=== PATIENT | female | born 1995 | race Two or more races ===

== ENCOUNTER 2018-02-19 10:55 | Inpatient (IN) | payer BC, OTHER ==
[2018-02-19] MEDS: CEFAZOLIN 1 GM/50 ML (PMX) 50 ML IVPB (00:45)
[~2018-02-19 10:55] MED LIST: OXYTOCIN 30 UNITS/LR 500 ML BAG IV
[2018-02-19] MEDS: LACTATED RINGER'S 1,000 ML IV ×2 (11:40→15:43)
[2018-02-19] MEDS ORDERED: MISOPROSTOL 200 MCG TAB PR ×2 (12:00→22:00)
[2018-02-19] MEDS ORDERED: OXYTOCIN 30 UNITS/LR 500 ML IV ×2 (12:00→22:00)
[2018-02-19] MEDS ORDERED: CARBOPROST 250 MCG INJ IM ×2 (12:00→22:00)
[2018-02-19] MEDS ORDERED: METHYLERGONOVINE 0.2 MG INJ IM ×2 (12:00→22:00)
[2018-02-19 12:26] LABS: ADD MAN DIFF? NO
[2018-02-19 12:29] LABS: ABNORMAL IP MESSAGE 1; BASOPHILS % 0.5 % (0.0-2.0); EOSINOPHILS % 0.5 % (0.0-7.0); HEMATOCRIT 25.3 % (37.0-47.0); HEMOGLOBIN 7.6 g/dl (12.0-16.0); LYMPHOCYTES # 1.2 10^3/ul (0.8-2.9); LYMPHOCYTES % 17.7 % (15.0-51.0); MEAN CORPUSCULAR VOLUME 79.8 fl (82.0-101.0); MEAN PLATELET VOLUME 13.9 fl (7.4-10.4); MONOCYTE # 0.5 10^3/ul (0.3-0.9); MONOCYTES % 7.2 % (0.0-11.0); NEUTROPHIL # 4.8 10^3/ul (1.6-7.5); NEUTROPHILS % 73.6 % (39.0-77.0); NUCLEATED RED BLOOD CELLS% 0.3 /100WBC (0.0-0.0); PLATELET COUNT 198 10^3/UL (140-415); RED BLOOD COUNT 3.17 10^6/ul (4.20-5.40); RED CELL DISTRIBUTION WIDTH 17.4 % (11.5-14.5)
[2018-02-19 12:29] LABS: WHITE BLOOD COUNT 6.5 10^3/ul (4.8-10.8)
[2018-02-19 12:30] LABS: POSITIVE DIFF @See below
[2018-02-19 12:46] LABS: INR 0.89; PROTIME 12.1 Sec (11.9-14.9); PT RATIO 0.9
[2018-02-19 12:47] LABS: PARTIAL THROMBOPLASTIN TIME 26.9 Sec (25.0-35.0)
[2018-02-19 14:17] LABS: HEPATITIS B SURFACE ANTIGEN NEGATIVE (NEGATIVE)
[2018-02-19 15:13] LABS: RAPID PLASMA REAGIN NONREACTIVE (NR)
[2018-02-19] MEDS ORDERED: OXYTOCIN 10 UNIT INJ (16:28)
[2018-02-19] MEDS ORDERED: PHENYLephrine (100 MCG/ML) 5ML SYG (16:28)
[2018-02-19] MEDS ORDERED: morphine SULFATE/PF (10 MG/10 ML) INJ (16:28)
[2018-02-19] MEDS ORDERED: BUPIVACAINE 0.75%/DEXT (SPINAL) 2 ML INJ (16:29)
[2018-02-19] MEDS: CEFAZOLIN 2 GM/50 ML (PMX) 50 ML IV (16:59)
[2018-02-19] MEDS ORDERED: METOCLOPRAMIDE 10 MG INJ (17:01)
[2018-02-19] MEDS ORDERED: DEXAMETHASONE 4 MG/ML 1 ML INJ (17:01)
[2018-02-19] MEDS ORDERED: ONDANSETRON 4 MG INJ (17:01)
[2018-02-19] MEDS ORDERED: KETOROLAC 30 MG INJ (17:01)
[2018-02-19] MEDS ORDERED: EPHEDrine SULFATE 50 MG/5 ML SYG (17:03)
[2018-02-19] MEDS: OXYTOCIN 30 UNITS/LR 500 ML IV ×2 (18:13→22:15)
[2018-02-19] MEDS ORDERED: NALOXONE (0.4 MG/ML) INJ IV (18:30)
[2018-02-19] MEDS ORDERED: HYDROCODONE/APAP (5/325) TAB PO (18:30)
[2018-02-19] MEDS ORDERED: ONDANSETRON 4 MG INJ IV (18:30)
[2018-02-19] MEDS ORDERED: HYDROmorphONE 0.5 MG/0.5 ML SYG IV ×2 (18:30)
[2018-02-19] MEDS ORDERED: DIPHENHYDRAMINE 50 MG INJ IV (18:30)
[2018-02-19] MEDS ORDERED: morphine 2 MG INJ IV ×2 (18:30)
[2018-02-19] MEDS ORDERED: ACETAMINOPHEN 500 MG TAB PO (18:30)
[2018-02-19] MEDS ORDERED: NALBUPHINE HCL (10 MG/1 ML) INJ IV (18:30)
[2018-02-19] MEDS: ONDANSETRON 4 MG INJ IV (19:56)
[2018-02-20] MEDS: OXYTOCIN 30 UNITS/LR 500 ML IV (02:59)
[2018-02-20] MEDS: LACTATED RINGER'S 1,000 ML IV ×3 (06:35→18:00)
[2018-02-20 09:02] LABS: ADD MAN DIFF? NO
[2018-02-20 09:11] LABS: WHITE BLOOD COUNT 10.6 10^3/ul (4.8-10.8)
[2018-02-20 09:11] LABS: ABNORMAL IP MESSAGE 1; BASOPHILS % 0.2 % (0.0-2.0); HEMATOCRIT 19.9 % (37.0-47.0); LYMPHOCYTES # 1.1 10^3/ul (0.8-2.9); MEAN CORPUSCULAR HGB CONC 29.6 g/dl (32.0-37.0); MEAN CORPUSCULAR VOLUME 80.9 fl (82.0-101.0); MEAN PLATELET VOLUME 13.8 fl (7.4-10.4); MONOCYTE # 0.7 10^3/ul (0.3-0.9); MONOCYTES % 6.8 % (0.0-11.0); NEUTROPHIL # 8.8 10^3/ul (1.6-7.5); NEUTROPHILS % 82.5 % (39.0-77.0); PLATELET COUNT 147 10^3/UL (140-415); RED BLOOD COUNT 2.46 10^6/ul (4.20-5.40); RED CELL DISTRIBUTION WIDTH 17.5 % (11.5-14.5)
[2018-02-20 09:19] LABS: POSITIVE DIFF @See below
[2018-02-20 09:20] LABS: HEMOGLOBIN 5.9 g/dl (12.0-16.0)
[2018-02-20] MEDS: SOD CHLORIDE 0.9% 250 ML IV* (09:27)
[2018-02-20] MEDS: SENNA/DOCUSATE NA (8.6MG/50MG) TAB PO ×2 (10:07→21:32)
[2018-02-20] MEDS: KETOROLAC 30 MG INJ IV (12:24)
[2018-02-20 12:56] LABS: IMMEDIATE SPIN CROSSMATCH 1 4
[2018-02-20] MEDS: IBUPROFEN 600 MG TAB PO (17:57)
[2018-02-20] MEDS ORDERED: OXYCODONE/ACETAMINOPHEN (5/325) TAB PO ×2 (18:30)
[2018-02-20] MEDS ORDERED: HYDROCODONE/APAP (5/325) TAB PO ×2 (18:30)
[2018-02-20 20:01] LABS: ADD MAN DIFF? NO
[2018-02-20 20:10] LABS: WHITE BLOOD COUNT 11.4 10^3/ul (4.8-10.8)
[2018-02-20 20:10] LABS: BASOPHILS % 0.3 % (0.0-2.0); EOSINOPHILS % 0.3 % (0.0-7.0); HEMOGLOBIN 9.4 g/dl (12.0-16.0); LYMPHOCYTES # 1.6 10^3/ul (0.8-2.9); LYMPHOCYTES % 14.3 % (15.0-51.0); MEAN CORPUSCULAR HEMOGLOBIN 26.4 pg (29.0-33.0); MEAN CORPUSCULAR HGB CONC 32.4 g/dl (32.0-37.0); MEAN CORPUSCULAR VOLUME 81.5 fl (82.0-101.0); MEAN PLATELET VOLUME 13.3 fl (7.4-10.4); MONOCYTE # 0.6 10^3/ul (0.3-0.9); MONOCYTES % 4.8 % (0.0-11.0); NEUTROPHIL # 9.1 10^3/ul (1.6-7.5); NEUTROPHILS % 79.8 % (39.0-77.0); NUCLEATED RED BLOOD CELLS% 0.2 /100WBC (0.0-0.0); PLATELET COUNT 168 10^3/UL (140-415); RED BLOOD COUNT 3.56 10^6/ul (4.20-5.40); RED CELL DISTRIBUTION WIDTH 16.7 % (11.5-14.5)
[2018-02-21] MEDS: IBUPROFEN 600 MG TAB PO ×5 (00:06→23:25)
[2018-02-21] MEDS: NA PHOSPHATE/BIPHOS 133 ML ENEMA PR (09:00)
[2018-02-21] MEDS: SENNA/DOCUSATE NA (8.6MG/50MG) TAB PO ×2 (09:08→21:00)
[2018-02-21] MEDS: LANOLIN 7 GM TUBE TOP (09:09)
[2018-02-22] MEDS: IBUPROFEN 600 MG TAB PO ×2 (05:38→12:12)
[2018-02-22] MEDS: DIPHTH/TET/ACEL PERTUSS (ADULT) 0.5 ML VIAL IM* (09:00)
[2018-02-22] MEDS: SENNA/DOCUSATE NA (8.6MG/50MG) TAB PO (09:00)
== END 2018-02-22 13:55 | disposition home or self-care (01) | DRG 766 ==
LOC: L-D 10:55 → PP1 20:24
PROVIDERS: Obstetrics & Gynecology
PROC: 10D00Z1 Extraction of Products of Conception, Low, Open Approach (ICD-10-PCS; principal; 2018-02-19)
DX: O34.219 Maternal care for unspecified type scar from previous cesarean delivery (principal); Z3A.39 39 weeks gestation of pregnancy; Z37.0 Single live birth
CPT/HCPCS: 36430; 85025; 85610; 85730; 86592; 86850; 86900; 86901; 86920; 87340; 99464